=== PATIENT | male | born 1960 | race Two or more races ===

== ENCOUNTER 2016-09-08 17:47 | Emergency (ER) | payer SELFPAY ==
[~2016-09-08] VITALS: Ht 167.6 cm; Wt 63.5 kg
[~2016-09-08 17:47] MED LIST: NKM
[2016-09-08 20:55] VITALS: BP 134/78
[2016-09-09 01:00] VITALS: BP 130/75
[2016-09-09 03:00] VITALS: BP 125/74
[2016-09-09 05:00] VITALS: BP 127/76
[2016-09-09 05:55] VITALS: BP 120/76
--- NOTE | 2016-09-10 07:13 | Emergency Room Report ---
History of Present Illness General Chief Complaint: Alcohol Intoxication Source: Patient Present Illness HPI 56-year-old male presents ED for evaluation. Per EMS patient brought in for alcohol intoxication. Patient was found sleeping at shop nearby. Bystanders called 911. No signs of trauma. patient brought in with no signs of distress. States that he is drunk and he needs to sleep. Denies any drug use. Denies any suicidal or homicidal ideation. Denies hearing voices. Denies any abdominal pain, chest pain or shortness of breath. Denies any fevers or chills. No other aggravating or relieving factors. Denies any other associated symptoms Allergies: Coded Allergies: No Known Allergies (Unverified , 07/01/14) Patient History Past Medical History: none Past Surgical History: none Pertinent Family History: none Social History: Reports: alcohol use, Denies: drug use, smoking Immunizations: UTD Reviewed Nursing Documentation: PMH: Agreed, PSxH: Agreed Nursing Documentation-PMH Hx Cerebrovascular Accident: Yes Review of Systems All Other Systems: negative except mentioned in HPI Physical Exam Vital Signs Date Time Temp Pulse Resp B/P Pulse Ox O2 Delivery O2 Flow Rate FiO2 09/08/16 17:42 98.2 86 16 138/74 100 Room Air Sp02 EP Interpretation: reviewed, normal General Appearance: no apparent distress, other - intoxicated Head: normocephalic Eyes: bilateral eye PERRL, bilateral eye normal inspection ENT: normal ENT inspection Neck: normal inspection Respiratory: chest non-tender, lungs clear, normal breath sounds, speaking full sentences Cardiovascular #1: regular rate, rhythm, no edema Gastrointestinal: normal bowel sounds, non tender, soft, non-distended, no guarding, no rebound Rectal: deferred Genitourinary: no CVA tenderness Musculoskeletal: back normal Neurologic: other - intoxicated Psychiatric: other - intoxicated Skin: normal inspection Lymphatic: normal inspection Medical Decision Making Diagnostic Impression: Primary Impression: Acute alcoholic intoxication Qualified Codes: F10.129 - Alcohol abuse with intoxication, unspecified ER Course Hospital Course 56-year-old male presents to ED status post EtOH intoxication. Clinical course Patient placed on stretcher. Given that patient is able to provide an adequate history, I see no need to check blood work or place an IV. Patient allowed to sleep. My assessment shows no evidence of SI/HI requiring psychiatric evaluation. Patient allowed to rest in now awake alert oriented x3. ambulating without difficulty. Diagnosis - ETOH intoxication stable and discharged to home. Followup with PMD. Return to ED if symptoms recur or worsen Last Vital Signs Date Time Temp Pulse Resp B/P Pulse Ox O2 Delivery O2 Flow Rate FiO2 09/09/16 05:55 98.4 76 15 120/76 100 Room Air Status: improved Disposition: HOME, SELF-CARE Condition: Stable Referrals: NOT CHOSEN IPA/,REFERRING (PCP) Patient Instructions: Alcohol Intoxication CALLI QUINONES M.D. Sep 10, 2016 07:13
== END 2016-09-09 05:55 | disposition home or self-care (01) ==
LOC: EDBD 17:47 → EMR 18:48
DX: F10.129 Alcohol abuse with intoxication, unspecified (principal); Z86.73 Personal history of transient ischemic attack (TIA), and cerebral infarction without residual deficits
CPT/HCPCS: 99284

== ENCOUNTER 2016-09-11 22:01 | Emergency (ER) | payer SELFPAY ==
[~2016-09-11] VITALS: Ht 170.2 cm; Wt 81.6 kg
--- NOTE | 2016-09-11 22:24 | Emergency Room Report ---
History of Present Illness General Chief Complaint: Alcohol Intoxication Source: Patient, EMS Present Illness HPI Is a 56-year-old male who is an alcoholic. He presents without intoxication. He was recently here 2 days ago. No trauma. Denies any fever chills denies any nausea vomiting. Said he is [address]. No other complaint. Allergies: Coded Allergies: No Known Allergies (Unverified , 07/01/14) Patient History Past Medical History: see triage record, old chart reviewed Past Surgical History: none Pertinent Family History: none Social History: Reports: alcohol use Immunizations: other Reviewed Nursing Documentation: PMH: Agreed, PSxH: Agreed Nursing Documentation-PMH Hx Cerebrovascular Accident: Yes Review of Systems Eye: Denies: blurred vision, eye pain ENT: Denies: ear pain, nose congestion, throat swelling Respiratory: Denies: cough, shortness of breath Cardiovascular: Denies: chest pain, palpitations Gastrointestinal: Denies: abdominal pain, diarrhea, nausea, vomiting Musculoskeletal: Denies: back pain, joint pain Skin: Denies: rash Neurological: Denies: headache, numbness Endocrine: Denies: increased thirst, increased urine Hematologic/Lymphatic: Denies: easy bruising All Other Systems: negative except mentioned in HPI Physical Exam Vital Signs Date Time Temp Pulse Resp B/P Pulse Ox O2 Delivery O2 Flow Rate FiO2 09/11/16 22:02 98.8 98 22 122/79 99 Room Air vitals normal Sp02 EP Interpretation: reviewed, normal General Appearance: no apparent distress, alert, other - dishelved Head: normocephalic, atraumatic Eyes: bilateral eye EOMI, bilateral eye PERRL ENT: hearing grossly normal, normal pharynx Neck: full range of motion, supple, no meningismus Respiratory: chest non-tender, lungs clear, normal breath sounds Cardiovascular #1: regular rate, rhythm, no murmur Gastrointestinal: normal bowel sounds, non tender, no mass, no organomegaly, no bruit, non-distended Musculoskeletal: back normal, normal range of motion Neurologic: alert Psychiatric: mood/affect normal Skin: warm/dry Medical Decision Making Diagnostic Impression: Primary Impression: Alcoholism Additional Impression: Acute alcoholic intoxication Qualified Codes: F10.120 - Alcohol abuse with intoxication, uncomplicated ER Course Patient presents with alcohol intoxication. No injury. He said he does not want to quit drinking. We'll let him sleep until clinical sobriety. Afterward will discharge. Last Vital Signs Date Time Temp Pulse Resp B/P Pulse Ox O2 Delivery O2 Flow Rate FiO2 09/11/16 22:02 98.8 98 22 122/79 99 Room Air Status: improved Disposition: HOME, SELF-CARE Condition: Stable Patient Instructions: Alcohol Intoxication, Solv-up-Dhgh Additional Instructions: Followup with your Dr. in 7 days return if symptom worsen. Abstain from drinking. Go to rehabilitation. TRICIA WASSERMAN M.D. September 11, 2016 22:24
[2016-09-11 23:30] VITALS: BP 114/81
[2016-09-12 02:19] VITALS: BP 124/79
[2016-09-12 04:17] VITALS: BP 128/83
[2016-09-12 05:47] VITALS: BP 131/75
[2016-09-12 05:48] VITALS: BP 128/83
== END 2016-09-12 05:48 | disposition home or self-care (01) ==
LOC: EDBD 22:01 → EMR 22:16
DX: F10.229 Alcohol dependence with intoxication, unspecified (principal); Z86.73 Personal history of transient ischemic attack (TIA), and cerebral infarction without residual deficits
CPT/HCPCS: 99284